=== PATIENT | male | born 1955 | race Caucasian/White ===

== ENCOUNTER 2018-05-16 12:21 | Emergency (ER) | payer BC ==
[2018-05-16] MEDS ORDERED: GI Cocktail Oral Solution 30 ML PO ONE (13:24)
[2018-05-16 13:36] LABS: ANION GAP 12.5; CHLORIDE,CL 105 mmol/L (101-111); SODIUM,NA 138 mmol/L (135-145)
--- NOTE | 2018-05-16 14:01 | CR ---
Clinical history: 63-year-old male chest pain and shortness of breath. Interpretation: Negative exam. Normal cardiac silhouette without alveolar edema or dependent effusion. No lung mass, hilar lymphadenopathy or focal lobar pneumonia. No atelectasis/collapse. No pneumothorax or free subdiaphragmatic air. CONCLUSION: No acute cardiopulmonary abnormality.
--- NOTE | 2018-05-16 14:20 | EDM.PDOC ---
ED HPI GENERAL MEDICAL PROBLEM - General Chief Complaint: Chest Pain Stated Complaint: CHEST PAINS [id number] Time Seen by Provider: 05/16/18 12:58 Source of Information: Reports: Patient History Limitations: Reports: No Limitations - History of Present Illness INITIAL COMMENTS - FREE TEXT/NARRATIVE: Patient comes emergency department today with complaints of intermittent chest pain. Since early evening last night the patient has had some intermittent sharp shooting chest pain that starts in the epigastric region and radiates up his left anterior chest and left shoulder. Pain does not radiate into his neck. No shortness of breath no diaphoresis. No nausea no vomiting. No palpitations. No weakness dizziness lightheadedness. No weakness. No fever no chills. No abdominal pain. No nausea no vomiting. No black or tarry stools. He's never had a pain like this before. He denies any trauma or injury to his chest. No cough or congestion. Treatments [employer]: Reports: Other (see below) Other Treatments [employer]: prilosec chest Pain Score (Numeric/FACES): 1 - Related Data Allergies Allergy/AdvReac Type Severity Reaction Status Date / Time sulfates Allergy Rash Uncoded 05/16/18 12:54 Home Meds: Home Meds Aspirin 81 mg PO BEDTIME 05/16/18 [History] Past Medical History HEENT History: Reports: None Cardiovascular History: Reports: None Respiratory History: Reports: None Gastrointestinal History: Reports: GERD Genitourinary History: Reports: None Musculoskeletal History: Reports: None Neurological History: Reports: None Psychiatric History: Reports: None Endocrine/Metabolic History: Reports: None Hematologic History: Reports: None Immunologic History: Reports: None Oncologic (Cancer) History: Reports: None Dermatologic History: Reports: None - Infectious Disease History Infectious Disease History: Reports: None - Past Surgical History HEENT Surgical History: Reports: Tonsillectomy Cardiovascular Surgical History: Reports: Other (See Below) Other Cardiovascular Surgeries/Procedures: stress test and angiogram approx 15 years ago Respiratory Surgical History: Reports: None GI Surgical History: Reports: None Neurological Surgical History: Reports: None Musculoskeletal Surgical History: Reports: None Social & Family History - Family History Family Medical History: Noncontributory - Tobacco Use Smoking Status *Q: Never Smoker Second Hand Smoke Exposure: No - Caffeine Use Caffeine Use: Reports: None - Recreational Drug Use Recreational Drug Use: No ED ROS GENERAL - Review of Systems Review Of Systems: ROS reveals no pertinent complaints other than HPI. ED EXAM, GENERAL - Physical Exam Exam: See Below Exam Limited By: No Limitations General Appearance: Alert, WD/WN, No Apparent Distress Nose: Normal Inspection, Normal Mucosa Throat/Mouth: Normal Inspection, Normal Lips, Normal Oropharynx Head: Atraumatic, Normocephalic Neck: Normal Inspection, Supple, Non-Tender, Full Range of Motion Respiratory/Chest: No Respiratory Distress, Lungs Clear, Normal Breath Sounds, No Accessory Muscle Use, Chest Non-Tender, Other (NO Bruising swelling ecchymosis tenderness or any signs of trauma to the thorax.) Cardiovascular: Normal Peripheral Pulses, Regular Rate, Rhythm, No Edema, No Murmur, No Rub Peripheral Pulses: 2+: Radial (L), Radial (R), Posterior Tibial (L), Posterior Tibial (R), Dorsalis Pedis (L), Dorsalis Pedis (R) GI/Abdominal: Normal Bowel Sounds, Soft, Non-Tender, No Organomegaly, No Distention, No Mass, Pelvis Stable Back Exam: Normal Inspection, Full Range of Motion Extremities: Normal Inspection, No Pedal Edema, Normal Capillary Refill Neurological: Alert, Oriented, Normal Cognition, No Motor/Sensory Deficits Psychiatric: Normal Affect, Normal Mood Skin Exam: Warm, Dry, Intact, Normal Color, No Rash Lymphatic: No Adenopathy EKG INTERPRETATION EKG Date: 05/16/18 Time: 12:46 Rhythm: NSR Rate (Beats/Min): 68 [place]: Normal P-Wave: Present QRS: Normal ST-T: Normal QT: Normal Course - Vital Signs Last Recorded V/S: Last Vital Signs Temp 36.7 C 05/16/18 13:31 Pulse 61 05/16/18 13:31 Resp 16 05/16/18 13:31 BP 148/79 H 05/16/18 13:31 Pulse Ox 97 05/16/18 13:31 - Orders/Labs/Meds Orders: Active Orders 24 hr Category Date Time Status EKG 12 Lead [EKG Documentation Completion] [RC] URGENT Care 05/16/18 12:58 Active Labs: Laboratory Tests 05/16/18 05/16/18 Range/Units 13:08 13:08 WBC 7.8 (5.0-10.0) 10^3/uL RBC 4.96 (4.6-6.2) 10^6/uL Hgb 14.5 (14.0-18.0) g/dL Hct 42.6 (40.0-54.0) % MCV 85.9 (80-100) fL MCH 29.2 (27.0-34.0) pg MCHC 34.0 (33.0-35.0) g/dL Plt Count 212 (150-450) 10^3/uL Neut % (Auto) 46.1 (42.2-75.2) % Lymph % (Auto) 35.9 (20.5-50.1) % [place] % (Auto) 7.2 (2-8) % Eos % (Auto) 10.3 H (1.0-3.0) % Baso % (Auto) 0.5 (0.0-1.0) % Sodium 138 (135-145) mmol/L Potassium 3.5 L (3.6-5.0) mmol/L Chloride 105 (101-111) mmol/L Carbon Dioxide 24.0 (21.0-31.0) mmol/L Anion Gap 12.5 BUN 15 (7-18) mg/dL Creatinine 0.9 (0.6-1.3) mg/dL Est Cr Clr Drug Dosing 87.87 mL/min Estimated GFR (MDRD) > 60 BUN/Creatinine Ratio 16.66 Glucose 117 H (74-105) mg/dL Calcium 8.6 (8.4-10.2) mg/dl Total Bilirubin 1.0 (0.2-1.0) mg/dL AST 26 (10-42) IU/L ALT 30 (10-60) IU/L Alkaline Phosphatase 82 (42-121) IU/L Troponin I < 0.02 (0.00-0.02) ng/ml Total Protein 7.0 (6.7-8.2) g/dl Albumin 4.0 (3.2-5.5) g/dl Globulin 3.0 Albumin/Globulin Ratio 1.33 Meds: Medications Discontinued Medications Generic Name Dose Route Start Last Admin Trade Name Freq PRN Reason Stop Dose Admin Al Hydroxide/Mg Hydroxide 30 ml 05/16/18 13:24 05/16/18 13:29 Gi Cocktail PO 05/16/18 13:25 30 ml ONETIME ONE Administration - Radiology Interpretation Free Text/Narrative:: CXR per radiology no acute findings per radiology. - Re-Assessments/Exams Free Text/Narrative Re-Assessment/Exam: 05/16/18 14:16 GI cocktail was given to the patient without any change in symptomology. EKG was normal as well as chest x-ray and laboratory evaluation. This patient has been having this intermittent sharp shooting stabbing pain since last night. At the time of discharge he was chest pain-free and feels that it just got better on its own. I am unsure what causing his pain but do not feel that it is cardiac this time. He is comfortable with this plan and his questions are answered. If he is not improving over the next couple of days he is to follow- up with primary care for further evaluation. Departure - Departure Time of Disposition: 14:13 Disposition: Home, Self-Care 01 Clinical Impression: Non-cardiac chest pain Additional Instructions: Tylenol and or Ibuprofen as needed for pain. Return to the ED if new or worsening symptoms. Follow up with primary care provider in the next 2-3 days if not improving sooner if worse. - My Orders Last 24 Hours: My Active Orders 05/16/18 12:58 EKG 12 Lead [EKG Documentation Completion] [RC] URGENT - Assessment/Plan Last 24 Hours: My Active Orders 05/16/18 12:58 EKG 12 Lead [EKG Documentation Completion] [RC] URGENT Assessment:: None cardiac chest pain. Plan: Tylenol and or Ibuprofen as needed for pain. Return to the ED if new or worsening symptoms. Follow up with primary care provider in the next 2-3 days if not improving sooner if worse.
== END 2018-05-16 14:22 | disposition home or self-care (01) ==
LOC: DL.ED 12:21
DX: R07.89 Other chest pain (principal); Z88.2 Allergy status to sulfonamides; Z79.82 Long term (current) use of aspirin
CPT/HCPCS: 36415; 71046; 80053; 84484; 85025; 93005; 99285; A9270

== ENCOUNTER 2021-11-19 16:14 | Emergency (ER) | payer BC ==
[2021-11-19 17:26] LABS: CORONAVIRUS COVID-19 NAA POSITIVE (NEGATIVE)
[2021-11-19] MEDS ORDERED: Acetaminophen 500 MG Tab PO ONE (17:53)
[2021-11-19] MEDS ORDERED: Lisinopril 10 MG Tab PO ONE (17:53)
[2021-11-19] MEDS ORDERED: Benzonatate 100 MG Cap PO ONE (17:56)
== END 2021-11-19 18:54 | disposition home or self-care (01) ==
LOC: DL.ED 16:14
DX: U07.1 COVID-19 (principal); I10 Essential (primary) hypertension; Z88.2 Allergy status to sulfonamides; Z79.899 Other long term (current) drug therapy; Z79.82 Long term (current) use of aspirin
CPT/HCPCS: 0240U; 93005; 99284; A9270

== ENCOUNTER 2023-12-22 09:38 | Emergency (ER) | payer BC ==
[2023-12-22 10:44] LABS: EOSINOPHILS PERCENT AUTO 3.4 % (1.0-3.0); HEMATOCRIT 42.6 % (40.0-54.0); HEMOGLOBIN 14.1 g/dL (14.0-18.0); LYMPHOCYTES PERCENT AUTO 25.4 % (20.5-50.1); MEAN CORPUSCULAR HEMOGLOBIN 28.8 pg (27.0-34.0); MEAN CORPUSCULAR HGB CONC 33.1 g/dL (33.0-35.0); MEAN CORPUSCULAR VOLUME 86.9 fL (80-100); MONOCYTES PERCENT AUTO 8.7 % (2-8); NEUTROPHILS PERCENT AUTO 61.5 % (42.2-75.2); PLATELET COUNT,PLT 224 10^3/uL (150-450); WHITE BLOOD CELL COUNT,WBC 6.8 10^3/uL (5.0-10.0)
[2023-12-22 10:46] LABS: APPEARANCE,URINE CLEAR (CLEAR); BILIRUBIN,URINE NEGATIVE (NEGATIVE); COLOR,URINE YELLOW (YELLOW); GLUCOSE,URINE NEGATIVE (NEGATIVE); KETONES,URINE NEGATIVE (NEGATIVE); LEUKOCYTE ESTERASE,URINE SMALL (NEGATIVE); NITRITE,URINE NEGATIVE (NEGATIVE); OCCULT BLOOD,URINE TRACE-INTACT (NEGATIVE); PH,URINE 5.5 (5.0-9.0); PROTEIN,URINE NEGATIVE (NEGATIVE); UROBILINOGEN,URINE 0.2 mg/dL (0.2-1.0)
[2023-12-22 10:57] LABS: BACTERIA,URINE FEW /HPF (0-FEW/HPF); EPITHELIAL CELLS,URINE FEW /HPF (NOT SEEN); MUCUS,URINE FEW /LPF (NOT SEEN); WBC,URINE 30-40 /HPF (0-5/HPF)
[2023-12-22 11:09] LABS: A/G RATIO 1.2; ALBUMIN 3.8 g/dL (3.4-5.0); ANION GAP 12.1 mEq/L (7-13); BILIRUBIN TOTAL 1.1 mg/dL (0.2-1.0); BUN/CREATININE RATIO 17.3 (No establ ref range); CALCIUM 9.2 mg/dL (8.5-10.1); CREATININE 0.98 mg/dL (0.70-1.30); EST CRCL DRUG DOSING (CG) 70.77 mL/min; POTASSIUM,K 4.1 mmol/L (3.5-5.1); PROTEIN TOTAL,TP 7.1 g/dL (6.4-8.2)
[2023-12-22] MEDS: Lactated Ringers 1,000 ML IV SCH (11:14)
[2023-12-22] MEDS: Iopamidol 612 MG/ML 100 ML Bottle IVPUSH ONE (12:13)
== END 2023-12-22 13:24 ==
LOC: DL.ED 09:38
DX: R33.9 Retention of urine, unspecified (principal); K21.9 Gastro-esophageal reflux disease without esophagitis; Z79.82 Long term (current) use of aspirin; Z79.899 Other long term (current) drug therapy; Z88.8 Allergy status to other drugs, medicaments and biological substances
CPT/HCPCS: 36415; 74177; 80053; 81001; 83690; 85025; 87086; 99284; J7120; Q9967